=== PATIENT | male | born 1940 | race Caucasian/White ===

== ENCOUNTER 2022-07-22 08:00 | Outpatient (RCR) | payer BC, SELFPAY ==
--- NOTE | 2022-07-12 09:22 | BUPTOPEVAL1 ---
Evaluation Information Assessment Status Evaluation Diagnosis BPPV Onset within the last year Subjective Information Reports had this some years ago, was treated w/ PT quick turns cause inc sx, movement of head inc sx Reported Pain Level Pain Score 0: Self Report Additional Pain Score Comments Vertigo sx: Currently: 1-2/10 Best: 0/10 Worst: 6-7/10 Assessment PT Clinical Summary Pt presents w/ c/o dizziness chi with head movement up and down and quick movements of rotation. Demo's nystagmus with multpile eye tests , and w/ cervical testing. Also demo's significantly decreased static balance chi with eyes closed suggestive of inner ear pathology consistent with diagnosis. Pt educated today on inner ear anatomy, effect of otolith position on symptoms, repositioning of the otoliths with PT procedures, and improving balance system. Performed R Felicitas procedure today with minimal sx' s. Pt reports significantly improved symptoms compared to entering facility. Will benefit from cont therapy at a decreased freq to cont to assess maintenance of improvements, balance retraining, and home program to prepare patient for highest possible functional outcomes. Plan of Care Interventions Gait Training,Neuro Re-education,Patient/Caregiver Educati,Therapeutic Exercise,Other Other Interventions Canalith repositioning techniques PT Services Indicated Yes Treatment Frequency and 1-2x weekly x 4-6 weeks Duration These treatments will address the objective and functional deficits as defined above. The patient will be advanced safely and appropriately in order for the patient to progress towards his/her prior level of function. Additional exercises will be introduced and as well as a comprehensive home exercise program upon discharge, if needed, ?to ensure carryover of functional gains achieved in the clinic. This treatment plan has been reviewed and agreement upon by the patient.
--- NOTE | 2022-08-19 08:31 | PTOPDC ---
Assessment and note entered by Jovanna Owusu, PT Discharge Information Assessment Status Discharge - Pt Not Present Diagnosis vertigo Onset within the last year Subjective Information Pt reports his symptoms have greatly improved. He is no longer worried about loosing his balance and falling. Reports always has a mild case of symptoms, but reports also has some allergies and feels this is effecting how he feels. Has recently started a nose spray and this is helping. Current symptoms always 1-2/10 in intensity Worst 3/10 with turning Has not had any severe symptoms in a couple of weeks. No longer has difficulty w/ steps or items moving past him as in a car or with looking up. Has been doing his balance exercises at home as well. Reported Pain Level Symptom rating 0: Self Report Assessment PT Clinical Summary Pt called and stated he is doing very well and would like to cease therapy. Subjective information regarding symptoms as noted above. Pt verbalizes understanding of how to access therapy should he need to return for this or other issues. Thus pt is being discharge by request with his goals fully met and therapy goals partially met.
== END 2022-08-28 08:19 | disposition home or self-care (01) ==
LOC: ANHHIPT 08:00
PROVIDERS: PCP Physician Assistant Medical; Visit Provider Physician Assistant Medical
DX: H81.10 Benign paroxysmal vertigo, unspecified ear (principal); R26.81 Unsteadiness on feet
CPT/HCPCS: 97112; 97161